=== PATIENT | female | born 1970 | race Caucasian/White ===

== ENCOUNTER → 2018-04-08 | Outpatient (CLI) | payer OTHER ==
[~2018-04-08] MED LIST: EMPA10TA PO; LAMO300T PO; LEVO75TA5 PO; LISI5TAB7 PO; METF1000 PO; SIMV20TA3 PO
== END | disposition home or self-care (01) ==
LOC: CFH 13:13
PROVIDERS: ATTEND Nurse Practitioner Primary Care
DX: M19.012 Primary osteoarthritis, left shoulder (principal)

== ENCOUNTER → 2018-08-04 | Outpatient (CLI) | payer OTHER ==
[~2018-08-04] MED LIST changes: +CALC250T PO; +EMPA25TA PO; +GABA300C10 PO; +HYDR25TA11 PO; +LANS15CA5 PO; +LORA10TA3 PO; +ORPH100T PO; +SIMV40TA3 PO; +VITA1CAP7 PO
[2018-08-04 14:50] LABS: BASOPHILS # (AUTO) 0.06 x10^3/uL (0-0.1); BASOPHILS % (AUTO) 1 % (0-1); EOSINOPHILS # (AUTO) 0.24 x10^3/uL (0-0.4); EOSINOPHILS % (AUTO) 2 % (1-7); LYMPHOCYTES # (AUTO) 2.19 x10^3/uL (1-3.4); LYMPHOCYTES % (AUTO) 18 % (22-44); MD NO; MEAN CORPUSCULAR HEMOGLOBIN 28.4 pg (27.0-34.8); MEAN CORPUSCULAR HGB CONC 33.6 g/dL (32.4-35.8); MEAN CORPUSCULAR VOLUME 84.6 fL (80-100); MEAN PLATELET VOLUME 6.7 fL (7.4-10.4); MONOCYTES # (AUTO) 0.88 x10^3/uL (0.2-0.8); MONOCYTES % (AUTO) 7 % (2-9); NEUTROPHILS % (AUTO) 73 % (42-75); PLATELET COUNT 538 x10^3/uL (130-400); RED BLOOD COUNT 5.06 x10^6/uL (3.82-5.3); RED CELL DISTRIBUTION WIDTH 13.8 % (9.6-15.2)
[2018-08-04 14:58] LABS: ANION GAP 10 mmol/L (5-15); CALCIUM 9.3 mg/dL (8.5-10.1); CHLORIDE 106 mmol/L (98-107)
[2018-08-04 15:05] LABS: ALANINE AMINOTRANSFERASE 33 U/L (12-78); ALKALINE PHOSPHATASE 84 U/L (45-117); BILIRUBIN,TOTAL 0.3 mg/dL (0.2-1.0); CREATININE 1.09 mg/dL (0.55-1.02); TOTAL PROTEIN 7.7 g/dL (6.4-8.2)
== END | disposition home or self-care (01) ==
LOC: STAR 13:51
PROVIDERS: ATTEND Obstetrics & Gynecology
DX: Z01.818 Encounter for other preprocedural examination (principal); D25.1 Intramural leiomyoma of uterus; R93.89 Abnormal findings on diagnostic imaging of other specified body structures
CPT/HCPCS: 36415; 80053; 84703; 85025; 93005

== ENCOUNTER 2018-08-09 13:33 | Day surgery (SDC) | payer OTHER ==
[~2018-08-09] VITALS: Ht 167.6 cm; Wt 102.0 kg
[2018-08-09] MEDS ORDERED: LACTATED RINGERS 1,000 ML IV SCH (13:44)
[2018-08-09] MEDS ORDERED: ONDANSETRON ODT 8 MG PO ONE (14:00)
[2018-08-09] MEDS ORDERED: GABAPENTIN 300 MG CAPSULE PO ONE (14:00)
[2018-08-09] MEDS ORDERED: ACETAMINOPHEN 500 MG TABLET PO ONE (14:00)
[2018-08-09 14:07] VITALS: BP 125/80
[2018-08-09 14:20] LABS: HCG UR SG 1.021 (1.003-1.030)
[2018-08-09] MEDS ORDERED: SILVER NITRATE STICK TP ONE (14:39)
[2018-08-09] MEDS ORDERED: BUPIVACAINE/PF-EPI 0.25% 1:200K ONE (14:39)
[2018-08-09] MEDS ORDERED: FENTANYL PF 100 MCG/2ML ONE (14:51)
[2018-08-09] MEDS ORDERED: MEPERIDINE/PF 25MG/0.5ML IVPush PRN (15:00)
[2018-08-09] MEDS ORDERED: PROCHLORPERAZINE 5 MG/ML, 2ML IV PRN (15:00)
[2018-08-09] MEDS ORDERED: FENTANYL PF 100 MCG/2ML IV PRN (15:00)
[2018-08-09] MEDS ORDERED: DIPHENHYDRAMINE 50 MG/ML, 1ML IVPush PRN (15:00)
[2018-08-09] MEDS ORDERED: HYDROmorphone 1 MG/ML, 1ML IV PRN (15:00)
[2018-08-09] MEDS ORDERED: OXYcodone 5 MG/5 ML ORAL.SOL UDC PO PRN (15:00)
[2018-08-09] MEDS ORDERED: MIDAZOLAM 1 MG/ML, 2ML ONE (15:13)
[2018-08-09] MEDS ORDERED: KETOROLAC 30 MG/1 ML ONE (15:51)
[2018-08-09] MEDS ORDERED: PROPOFOL 10 MG/ML, 20ML ONE (15:51)
[2018-08-09] MEDS ORDERED: CEFAZOLIN 1,000 MG ONE (15:51)
[2018-08-09] MEDS ORDERED: ONDANSETRON 2MG/ML, 2ML ONE (15:51)
[2018-08-09] MEDS ORDERED: OXYcodone 5 MG/5 ML ORAL.SOL UDC ONE (17:00)
[2018-08-09] MEDS ORDERED: OXYcodone/APAP 5/325MG TABLET PO PRN (18:30)
[2018-08-09] MEDS ORDERED: morphine SULFATE 10 MG/ML, 1ML IV PRN (18:30)
[2018-08-09] MEDS ORDERED: KETOROLAC 30 MG/1 ML IV PRN ×2 (18:30)
[2018-08-09] MEDS ORDERED: SIMVASTATIN 40 MG TABLET PO SCH (21:00)
[2018-08-09] MEDS ORDERED: LAMOTRIGINE 100 MG TABLET PO SCH (21:00)
[2018-08-09] MEDS ORDERED: IBUPROFEN 600 MG TABLET PO SCH (21:00)
[2018-08-09] MEDS ORDERED: GABAPENTIN 300 MG CAPSULE PO SCH (21:00)
[2018-08-10] MEDS ORDERED: LEVOTHYROXINE 75 MCG TABLET PO SCH (06:00)
[2018-08-10] MEDS ORDERED: metFORMIN 500 MG TABLET PO SCH (08:00)
[2018-08-10] MEDS ORDERED: CALCIUM CITRATE 950 MG TABLET PO SCH (09:00)
[2018-08-10] MEDS ORDERED: LORATADINE 10 MG TABLET PO SCH (09:00)
[2018-08-10] MEDS ORDERED: JARDIANCE 25 MG HOMEMEDPO SCH (09:00)
[2018-08-10] MEDS ORDERED: LISINOPRIL 5 MG TABLET PO SCH (09:00)
[2018-08-10] MEDS ORDERED: MULTIVITS,STRESS FORMULA 1 TABLET PO SCH (09:00)
[2018-08-11] MEDS ORDERED: PANTOPRAZOLE 20MG TABLET PO SCH (09:00)
[2018-08-16] MEDS ORDERED: ORPHENADRINE CITRATE 100 MG HOMEMEDPO SCH (19:00)
== END 2018-08-09 19:15 | disposition home or self-care (01) ==
LOC: OR 13:33 → 4NOR 17:51 → OR 19:15
PROVIDERS: ATTEND Obstetrics & Gynecology
DX: N93.9 Abnormal uterine and vaginal bleeding, unspecified (principal); E03.9 Hypothyroidism, unspecified; E11.9 Type 2 diabetes mellitus without complications; F32.9 Major depressive disorder, single episode, unspecified; E78.00 Pure hypercholesterolemia, unspecified; Z98.890 Other specified postprocedural states
CPT/HCPCS: 58558; 81025; 82962; 88305; J0690; J1885; J2250; J2405; J2704; J3010; J7120; Q0162; G0378

== ENCOUNTER → 2020-04-16 | Outpatient (CLI) | payer BC ==
[~2020-04-16] MED LIST changes: +HYDR-826 PO; -HYDR25TA11 PO; +LORA-247 PO; -LORA10TA3 PO; +SIMV20TA19 PO; -SIMV20TA3 PO; +SIMV40TA20 PO; -SIMV40TA3 PO
== END | disposition home or self-care (01) ==
LOC: CFH 07:26
PROVIDERS: ATTEND Internal Medicine Cardiovascular Disease
DX: I10 Essential (primary) hypertension (principal); E11.9 Type 2 diabetes mellitus without complications; E78.5 Hyperlipidemia, unspecified; R94.31 Abnormal electrocardiogram [ECG] [EKG]; F17.200 Nicotine dependence, unspecified, uncomplicated
CPT/HCPCS: 93306

== ENCOUNTER → 2020-05-10 | Outpatient (CLI) | payer BC | END | disposition home or self-care (01) | LOC: CFH 08:08 | PROVIDERS: ATTEND Internal Medicine Cardiovascular Disease | DX: R94.31 Abnormal electrocardiogram [ECG] [EKG] (principal); R07.9 Chest pain, unspecified | CPT/HCPCS: 78452; 93017; A9502 ==

== ENCOUNTER 2020-10-10 16:06 | Emergency (ER) | payer BC ==
[~2020-10-10] VITALS: Ht 167.6 cm; Wt 99.5 kg
--- NOTE | 2020-10-10 16:23 | NUR ---
RASH AND PAIN TO L BREAST SINCE 09/26. WAS SEEN AT AND GIVEN ANTIBIOTICS. FINISHED AND THEN RASH RETURNED. GIVEN SECOND ROUND OF ANTIBIOTICS 10/07 AT . PAIN AND RASH NOT IMPROVING. HX OF PIERCING TO L NIPPLE 20 YEARS AGO, NO JEWLERY SINCE.
[2020-10-10 17:06] LABS: BASOPHILS % (AUTO) 0 % (0-1); EOSINOPHILS % (AUTO) 3 % (1-7); LYMPHOCYTES % (AUTO) 19 % (22-44); MEAN CORPUSCULAR HEMOGLOBIN 27.7 pg (27.0-34.8); MEAN PLATELET VOLUME 6.4 fL (7.4-10.4); MONOCYTES % (AUTO) 9 % (2-9); NEUTROPHILS % (AUTO) 69 % (42-75); PLATELET COUNT 474 x10^3/uL (130-400); RED BLOOD COUNT 5.11 x10^6/uL (3.82-5.3); RED CELL DISTRIBUTION WIDTH 14.1 % (9.6-15.2)
[2020-10-10 17:07] LABS: MD NO
[2020-10-10 17:17] LABS: ANION GAP 7 mmol/L (5-15); CALCIUM 10.1 mg/dL (8.5-10.1); CHLORIDE 107 mmol/L (98-107); CREATININE 0.94 mg/dL (0.55-1.02)
--- NOTE | 2020-10-10 18:58 | NUR ---
REPORT TO [facility]
[2020-10-10 19:15] VITALS: BP 105/66
[2020-10-10] MEDS ORDERED: LIDOCAINE-MPF 1%, 5ML ONE (19:15)
== END 2020-10-10 19:42 | disposition home or self-care (01) ==
LOC: ED 19:30
DX: L02.213 Cutaneous abscess of chest wall (principal); I10 Essential (primary) hypertension; E11.9 Type 2 diabetes mellitus without complications
CPT/HCPCS: 36415; 76642; 80048; 85025; 99284

== ENCOUNTER 2020-10-19 08:43 | Outpatient (CLI) | payer BC ==
[2020-10-19] MEDS ORDERED: ALIR75PE SC (09:32)
[2020-10-19] MEDS ORDERED: LANS30CA PO (09:32)
[2020-10-19] MEDS ORDERED: CARI3CAP PO (09:32)
[2020-10-19] MEDS ORDERED: calcium citrate PO (09:32)
[2020-10-19] MEDS ORDERED: ASPI81TA45 PO (09:32)
[2020-10-19] MEDS ORDERED: LAMO200T6 PO (09:32)
[2020-10-19] MEDS ORDERED: CHOL10003 PO (09:32)
[2020-10-19] MEDS ORDERED: LISI-167 PO (09:32)
[2020-10-19] MEDS ORDERED: SEMA1PEN SC (09:32)
[2020-10-19 11:07] LABS: ALBUMIN 4.1 g/dL (3.4-5.0); ANION GAP 7 mmol/L (5-15); CALCIUM 9.3 mg/dL (8.5-10.1); CHLORIDE 106 mmol/L (98-107)
[2020-10-19 11:11] LABS: ALANINE AMINOTRANSFERASE 64 U/L (12-78); ALKALINE PHOSPHATASE 83 U/L (45-117); BILIRUBIN,TOTAL 0.3 mg/dL (0.2-1.0); CREATININE 0.84 mg/dL (0.55-1.02); TOTAL PROTEIN 7.4 g/dL (6.4-8.2)
== END 2020-10-19 23:59 | disposition home or self-care (01) ==
LOC: STAR 08:43
PROVIDERS: ATTEND Surgery
DX: Z01.812 Encounter for preprocedural laboratory examination (principal); Z20.828 Contact with and (suspected) exposure to other viral communicable diseases
CPT/HCPCS: 80053; 87635; 93005

== ENCOUNTER 2020-10-23 06:54 | Day surgery (SDC) | payer BC ==
[~2020-10-23] VITALS: Ht 167.6 cm; Wt 97.0 kg
[~2020-10-23 06:54] MED LIST changes: +ALIR75PE SC; +ASPI81TA45 PO; +BUPIVACAINE/PF 0.5% ONE; +CARI3CAP PO; +CHOL10003 PO; +EPINEPHRINE 1 MG/ML, 1ML ONE; +ISOSULFAN BLUE 10 MG/ML, 5ML IV ONE; +LAMO200T6 PO; +LANS30CA PO; +LISI-167 PO; +SEMA1PEN SC; +calcium citrate PO
[2020-10-23] MEDS ORDERED: CHLORHEXIDINE 15 ML UDC MM STA (07:04)
[2020-10-23 07:27] VITALS: BP 114/76
[2020-10-23] MEDS ORDERED: LACTATED RINGERS 1,000 ML IV SCH (07:30)
[2020-10-23] MEDS ORDERED: ONDANSETRON 2MG/ML, 2ML ONE (08:40)
[2020-10-23] MEDS ORDERED: CEFAZOLIN 1,000 MG ONE (08:40)
[2020-10-23] MEDS ORDERED: PROPOFOL 10 MG/ML, 20ML ONE (08:40)
[2020-10-23] MEDS ORDERED: LIDOCAINE PF 2%, 5ML ONE (08:40)
[2020-10-23] MEDS ORDERED: DEXAMETHASONE 4 MG/ML, 1ML ONE (08:40)
[2020-10-23] MEDS ORDERED: MIDAZOLAM 1 MG/ML, 2ML ONE (08:47)
[2020-10-23] MEDS ORDERED: FENTANYL PF 100 MCG/2ML ONE (08:47)
[2020-10-23] MEDS ORDERED: METHOCARBAMOL 1,000 MG in DEXTROSE 5% 100 ML IV PRN (09:30)
[2020-10-23] MEDS ORDERED: ACETAMINOPHEN 325 MG TABLET PO PRN (09:30)
[2020-10-23] MEDS ORDERED: ONDANSETRON 2MG/ML, 2ML IVPush PRN (09:30)
[2020-10-23] MEDS ORDERED: PROMETHAZINE 25 MG SUPP PR PRN (09:30)
[2020-10-23] MEDS ORDERED: PROMETHAZINE 25 MG/ML, 1ML IVPush PRN (09:30)
[2020-10-23] MEDS ORDERED: MEPERIDINE/PF 25MG/0.5ML IVPush PRN (09:30)
[2020-10-23] MEDS ORDERED: LORazepam 2 MG/ML, 1ML IVPush PRN (09:30)
[2020-10-23] MEDS ORDERED: FENTANYL PF 100 MCG/2ML IV PRN (09:30)
[2020-10-23] MEDS ORDERED: HYDROmorphone 1 MG/ML, 1ML INJ IVPush PRN (09:30)
[2020-10-23] MEDS ORDERED: OXYcodone 5 MG/5 ML ORAL.SOL UDC PO PRN (09:30)
[2020-10-23] MEDS ORDERED: ACETAMINOPHEN 650 MG/20.3 ML UDC ONE (09:50)
[2020-10-23] MEDS ORDERED: KETOROLAC 30 MG/1 ML ONE (09:50)
[2020-10-23] MEDS ORDERED: OXYcodone 5 MG/5 ML ORAL.SOL UDC ONE (09:50)
[2020-10-23] MEDS ORDERED: KETOROLAC 30 MG/1 ML IVPush PRN (10:00)
== END 2020-10-23 11:15 | disposition home or self-care (01) ==
LOC: OUT 06:54
PROVIDERS: ATTEND Surgery
DX: N61.1 Abscess of the breast and nipple (principal); I10 Essential (primary) hypertension; E11.9 Type 2 diabetes mellitus without complications; E78.5 Hyperlipidemia, unspecified; G47.33 Obstructive sleep apnea (adult) (pediatric); F31.9 Bipolar disorder, unspecified; Z79.899 Other long term (current) drug therapy; Z87.891 Personal history of nicotine dependence; Z91.048 Other nonmedicinal substance allergy status
CPT/HCPCS: 19020; 19101; 82962; 87015; 87070; 87075; 87102; 87116; 87205; 87206; 88305; J0171; J0690; J1100; J1885; J2250; J2405; J2704; J3010; J7120

== ENCOUNTER → 2021-05-22 | Outpatient (CLI) | payer BC ==
[~2021-05-22] MED LIST changes: -ALIR75PE SC; +ALIR75PE5 SC; -BUPIVACAINE/PF 0.5% ONE; -EPINEPHRINE 1 MG/ML, 1ML ONE; -ISOSULFAN BLUE 10 MG/ML, 5ML IV ONE
== END | disposition home or self-care (01) ==
LOC: CFH 12:44
PROVIDERS: ATTEND Surgery
DX: N61.1 Abscess of the breast and nipple (principal)
CPT/HCPCS: 76642; 77062; 77066; G0279